=== PATIENT | female | born 1970 | race Caucasian/White ===

== ENCOUNTER 2017-01-24 19:03 | Emergency (ER) | payer SELFPAY ==
[2017-01-24] MEDS ORDERED: CEFTRIAXONE SODIUM 1 G VIAL ONE (21:09)
[2017-01-24] MEDS ORDERED: ACETAMINOPHEN 500 MG TABLET ONE (21:20)
[2017-01-24] MEDS ORDERED: IBUPROFEN 600 MG TABLET ONE (21:20)
== END 2017-01-24 21:47 | disposition home or self-care (01) ==
LOC: ED 19:03
DX: L02.511 Cutaneous abscess of right hand (principal); F17.210 Nicotine dependence, cigarettes, uncomplicated; Z86.14 Personal history of Methicillin resistant Staphylococcus aureus infection
CPT/HCPCS: 99283 ×2; 10061 ×2; 96372; A9270 ×2; J0696